=== PATIENT | male | born 1990 | race Caucasian/White ===

== ENCOUNTER 2023-07-07 18:46 | Emergency (ER) | payer SELFPAY ==
[~2023-07-07] VITALS: Ht 175.3 cm; Wt 73.0 kg
[~2023-07-07 18:46] MED LIST: NOCURR
[2023-07-07 19:41] VITALS: BP 112/60; PULSE 95; RESP 17; TEMP 98.7
== END 2023-07-07 21:11 | disposition home or self-care (01) ==
LOC: EMS 18:48
DX: F10.129 Alcohol abuse with intoxication, unspecified (principal)
CPT/HCPCS: 99283; Z7502

== ENCOUNTER 2024-09-28 18:52 | Emergency (ER) | payer MEDICAID ==
[~2024-09-28] VITALS: Ht 165.1 cm; Wt 65.9 kg
[2024-09-28 18:55] VITALS: TEMP 98.3
[2024-09-28] MEDS: HYDROCODONE/ACETAMINOPHEN 5-325 MG TABLET PO ONE (21:14)
[2024-09-28] MEDS: IBUPROFEN 400 MG TABLET PO ONE (21:15)
[2024-09-28] MEDS ORDERED: HYDR-4072 PO (22:10)
[2024-09-28 22:18] VITALS: BP 122/73; PULSE 98; RESP 16; O2SAT 98
== END 2024-09-28 22:25 | disposition home or self-care (01) ==
LOC: EMS 18:52
DX: S42.252A Displaced fracture of greater tuberosity of left humerus, initial encounter for closed fracture (principal); Y04.8XXA Assault by other bodily force, initial encounter; Y93.89 Activity, other specified; Y92.89 Other specified places as the place of occurrence of the external cause; Y99.8 Other external cause status
CPT/HCPCS: 99283

== ENCOUNTER 2024-10-04 14:18 | Emergency (ER) | payer MEDICAID ==
[~2024-10-04] VITALS: Ht 170.2 cm; Wt 72.7 kg
[~2024-10-04 14:18] MED LIST changes: +HYDR-4072 PO
[2024-10-04 14:29] VITALS: BP 154/92; PULSE 108; RESP 18; TEMP 99.2; O2SAT 99
[2024-10-04] MEDS: CefTRIAXone 1 GM/DEXTROSE 50 ML IV ONE (15:06)
[2024-10-04] MEDS: LIDOCAINE 1% 10 ML VIAL INJ ONE (15:06)
[2024-10-04] MEDS: HYDROmorphone HCL 2 MG/ML SYRINGE IVP ONE (15:06)
[2024-10-04] MEDS: ONDANSETRON HCL 4 MG/2 ML VIAL IVP ONE (15:06)
[2024-10-04] MEDS ORDERED: DOXY-354 PO (16:02)
[2024-10-04] MEDS ORDERED: IBUP-1554 PO (16:02)
[2024-10-04] MEDS ORDERED: HYDR-4062 PO (16:02)
[2024-10-04] MEDS ORDERED: CEPH-558 PO (16:02)
[2024-10-04] MEDS ORDERED: MUPI15CR12 TP (16:02)
[2024-10-04] MEDS: DOXYCYCLINE HYCLATE 100 MG TABLET PO ONE (16:03)
[2024-10-04] MEDS: PERTUSS(ACELL),DIPH,TET/PF 0.5 ML SYRINGE [ADULT] IM. ONE (16:04)
== END 2024-10-04 16:17 | disposition home or self-care (01) ==
LOC: EMS 14:18
DX: S42.292A Other displaced fracture of upper end of left humerus, initial encounter for closed fracture (principal); L03.211 Cellulitis of face; W57.XXXA Bitten or stung by nonvenomous insect and other nonvenomous arthropods, initial encounter; Y93.89 Activity, other specified; Y92.89 Other specified places as the place of occurrence of the external cause; Y99.8 Other external cause status
CPT/HCPCS: 99284; 96365; 10060; 96375; 90715; 90471; J1171; J0696; J2405; J3490

== ENCOUNTER 2024-10-06 23:03 | Emergency (ER) | payer MEDICAID ==
[~2024-10-06] VITALS: Ht 172.7 cm; Wt 68.2 kg
[~2024-10-06 23:03] MED LIST changes: +CEPH-558 PO; +DOXY-354 PO; +HYDR-4062 PO; +IBUP-1554 PO; +MUPI15CR12 TP; -NOCURR
[2024-10-06 23:09] VITALS: BP 107/60; PULSE 71; RESP 16; TEMP 98; O2SAT 99
== END 2024-10-07 01:41 | disposition home or self-care (01) ==
LOC: EMS 23:04
DX: S61.412A Laceration without foreign body of left hand, initial encounter (principal); W22.8XXA Striking against or struck by other objects, initial encounter; Y93.89 Activity, other specified; Y92.89 Other specified places as the place of occurrence of the external cause; Y99.8 Other external cause status
CPT/HCPCS: 99281; Z7502